=== PATIENT | male | born 1965 | race Caucasian/White ===

== ENCOUNTER 2022-11-16 07:00 | Outpatient (RCR) | payer BC, SELFPAY | END 2022-11-16 11:42 | disposition home or self-care (01) | LOC: ANHHIPT 07:00 | PROVIDERS: PCP Family Medicine; Visit Provider Family Medicine | DX: M25.551 Pain in right hip (principal); M25.552 Pain in left hip | CPT/HCPCS: 99199 ==

== ENCOUNTER 2023-02-26 13:15 | Outpatient (RCR) | payer BC, SELFPAY ==
--- NOTE | 2023-02-23 10:59 | PTOPEVAL1 ---
Assessment and note entered by Gisselle May, PT Evaluation Information Assessment Status Evaluation Diagnosis pain in right hip, pain in left hip Onset 10/2022 Subjective Information Pain sitting up, pain laying in bed Reported Pain Level Pain Score 0: Self Report Assessment PT Clinical Summary Pt presents w/ c/o bilateral hip pain especially with laying down at night and with getting up from prolonged sitting. Demo's overdeveloped gluteus minimus bilat, decreased strength and atrophy gluteus medius bilat, mildly decreased flexibility and ROM bilat hips, (+) tone multiple lumbar and gluteal muscles bilat. Pt will benefit from physical therapy to educate on improved functional mobility, strengthening, flexibility, and improve pain to return to prior level of function without pain. Plan of Care Interventions Electrical Stimulation,Hot Pack/Cold Pack,Manual Therapy,Neuro Re-education,Therapeutic Activities, Therapeutic Exercise,Self-Care/Home Management, Ultrasound PT Services Indicated Yes Treatment Frequency and 2x weekly x 4 weeks Duration These treatments will address the objective and functional deficits as defined above. The patient will be advanced safely and appropriately in order for the patient to progress towards his/her prior level of function. Additional exercises will be introduced and as well as a comprehensive home exercise program upon discharge, if needed, ?to ensure carryover of functional gains achieved in the clinic. This treatment plan has been reviewed and agreement upon by the patient.
--- NOTE | 2023-02-23 10:59 | OPREHPOC ---
Outpatient Therapy Plan of Care This is a Multidisciplinary Plan of Care that may contain components documented by all disciplines (PT, OT, and ST.) PT Goal 1 Goal Pt will be independent in HEP Target Visit 8 PT Goal 2 Goal Pt will verbalize understanding of diagnosis and prognosis Target Visit 8 PT Problem 2 PT Problem #2 Pain PT Goal 1 Goal Pt will report greatest pain level at 3/10 or less Target Visit 6 PT Goal 2 Goal Pt will report resolution of pain Target Visit 8 PT Problem 3 PT Problem #3 Impaired Strength PT Goal 1 Goal Pt will demo strength of 4+/5 in tesetd muscle groups Target Visit 8 PT Problem 4 PT Problem #4 Impaired Functional ADLs PT Goal 1 Goal Pt will report consistent use of functional modifications to improve pain Target Visit 8
--- NOTE | 2023-04-02 10:54 | PCPTNOTE ---
Admitting Provider: Attending Provider: KAT Mcgee Patient:Papito Cooley Date of :1965 Patient has not returned for any further treatments since 02/26/2023 due to insurance restrictions, therefore he will be discharged at this time. Patient?s initial visit was on 02/23/2023 10:15 and (he/she) had a total of 2 visits. The goals have been not been met, however pt was provided a detailed home exercise program to attempt independently. Thank you for referring this patient to [facility].
== END 2023-05-11 11:47 | disposition home or self-care (01) ==
LOC: ANHPT 13:15
PROVIDERS: PCP Family Medicine; Visit Provider Nurse Practitioner Family
DX: M25.551 Pain in right hip (principal); M25.552 Pain in left hip
CPT/HCPCS: 97110; 97140; 97161

== ENCOUNTER 2023-12-31 01:17 | Day surgery (SDC) | payer BC, SELFPAY ==
[2023-12-16 13:48] VITALS: BMI 28.8
[2023-12-31 06:22] VITALS: BP 140/104; PULSE 80; RESP 16; TEMP 36.2; O2SAT 99
[2023-12-31] MEDS: LACTATED RINGERS 1,000 ML 150 ML IV CONT (06:32)
--- NOTE | 2023-12-31 07:20 | PM.HPGS ---
History of Present Illness History of Present Illness Consent: Risks, benefits, and alternatives have been discussed and questions answered. Patient agrees to proceed with procedure. Chief complaint: History colon polyps Narrative: Papito Cooley is a 58 year old male with colon polyp 5 years ago Review of Systems Review of Systems: All systems reviewed & are unremarkable except as noted in HPI and below PMFSH Past Medical History Medical History (Updated 12/31/23 @ 07:21 by Enoch Bhat MD) Colon polyp Hip pain, bilateral Hyperlipidemia Hypertension Family History Family History ) Father Heart disease Sibling Heart disease Mother No problems noted. 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 Gender identity (if verbalized by the patient): Male Sexual Orientation (if Verbalized by the Patient): Straight or Heterosexual Meds Home Medications and Allergies Home Medications Medication Instructions Recorded Confirmed Type syringe with needle, safety 3 mL #12 ea 05/19/23 12/31/23 Rx 22 gauge x 1 testosterone cypionate 100 mg/mL 100 mg IM WEEKLY #10 mL 10/15/23 12/31/23 Rx intramuscular oil atenolol 50 mg tablet 50 mg PO DAILY #90 tabs 11/08/23 12/31/23 Rx losartan 100 mg tablet 100 mg PO DAILY #90 tabs 11/08/23 12/31/23 Rx rosuvastatin 5 mg tablet (Crestor) 5 mg PO DAILY #90 tabs 11/08/23 12/31/23 Rx Allergies Allergy/AdvReac Type Severity Reaction Status Date / Time Penicillins Allergy Intermediate Unknown Verified 12/31/23 06:19 Vital Signs Vital Signs - 24 hr 12/31/23 06:22 Temperature 97.1 F L Pulse Rate 80 Respiratory Rate 16 Blood Pressure 140/104 H Pulse Oximetry 99 Oxygen Delivery Room Air Exam Const: General: comfortable and no acute distress HENMT: Face/Nose/Sinus: Normal nares present Eyes: General: appearance normal, both eyes and all related structures Neck: Neck: no JVD Resp: Auscultation: clear to auscultation bilaterally Cardio: Rate: regular rate Rhythm: regular rhythm GI: Inspection: non-distended GI Palp: Yes Soft to palpation Skin: General skin exam: normal color Neuro: General: gait normal Speech: normal speech Extrem: General: normal to inspection Psych: Mental Status: mental status grossly normal Assessment and Plan Assessment and plan (1) Colon polyp: Code(s): K63.5 - Polyp of colon Status: Acute Assessment and Plan: colonoscopy
--- NOTE | 2023-12-31 07:22 | WPDANESEPPF ---
Anes - Initial Pre Proc Eval Procedure: Operation Date: 12/31/23 07:30 Proposed Procedures p Colonoscopy - Enoch Bhat MD Date/Time: 12/31/23 07:22 Surgeon: Enoch Bhat MD Pre Op Diagnosis: History colon polyps Patient Data Age: 58 Gender: M Height: 1.78 m Weight: 88.6 kg Last Vital Signs Temp 97.1 F L 12/31/23 06:22 Pulse 80 12/31/23 06:22 Resp 16 12/31/23 06:22 BP 140/104 H 12/31/23 06:22 Pulse Ox 99 12/31/23 06:22 O2 Del Method Room Air 12/31/23 06:22 Allergies Allergy/AdvReac Type Severity Reaction Status Date / Time Penicillins Allergy Intermediate Unknown Verified 12/31/23 06:19 Home Medications Medication Instructions Recorded Confirmed Type syringe with needle, safety 3 mL #12 ea 05/19/23 12/31/23 Rx 22 gauge x 1 testosterone cypionate 100 mg/mL 100 mg IM WEEKLY #10 mL 10/15/23 12/31/23 Rx intramuscular oil atenolol 50 mg tablet 50 mg PO DAILY #90 tabs 11/08/23 12/31/23 Rx losartan 100 mg tablet 100 mg PO DAILY #90 tabs 11/08/23 12/31/23 Rx rosuvastatin 5 mg tablet (Crestor) 5 mg PO DAILY #90 tabs 11/08/23 12/31/23 Rx Patient hx anesthesia problems: none Family hx anesthesia problems: none Results Review: All pre-operative results and documents have been reviewed as part of the pre-operative evaluation. [facility] Past Medical History Medical History (Updated 12/31/23 @ 07:21 by Enoch Bhat MD) Colon polyp Hip pain, bilateral Hyperlipidemia Hypertension Family History Family History ) Father Heart disease Sibling Heart disease Mother No problems noted. Social History Social History ) Smoking status: Never smoker Smokeless tobacco user: chewing tobacco Alcohol intake: current Alcohol use details: Socially Substance use: never Substance use type: does not use Living arrangements: other Additional living arrangements comments: with sp Occupation/Education: occupation Additional occupation/education comments: Library Aide Gender identity (if verbalized by the patient): Male Sexual Orientation (if Verbalized by the Patient): Straight or Heterosexual Anes - Eval Final PreProcedure Day of Procedure 12/31/23 07:22 Patient weight: normal Heart: regular rate and rhythm Lungs: clear to auscultation Airway: Mallampati scale class II Neurological: alert and oriented Last oral intake: >/= 8 hours ASA classification: II Emergent: no Anesthetic plan: proceed Anesthesia type and monitoring: general GIVS and standard monitoring Results Review: All pre-operative results and documents have been reviewed as part of the pre-operative evaluation. Informed Consent: The patient's anesthetic plan and its attendant risks and benefits were discussed with the patient/family/POA. Questions were solicited and answers provided to the satisfaction of the patient/family/POA.
[2023-12-31 07:40] VITALS: BP 100/66; PULSE 77; RESP 15; O2SAT 94
[2023-12-31 07:50] VITALS: BP 94/64; PULSE 77; RESP 17; O2SAT 94
[2023-12-31 08:00] VITALS: BP 105/57; PULSE 68; RESP 14; O2SAT 98
== END 2023-12-31 08:10 | disposition home or self-care (01) ==
PROVIDERS: PCP Family Medicine; Visit Provider Internal Medicine Gastroenterology
PROC: 0DJD8ZZ Inspection of Lower Intestinal Tract, Via Natural or Artificial Opening Endoscopic (ICD-10-PCS; CPT 45378; principal; 2023-12-31 07:30)
DX: Z12.11 Encounter for screening for malignant neoplasm of colon (principal); K57.30 Diverticulosis of large intestine without perforation or abscess without bleeding; K64.8 Other hemorrhoids; Z86.010 Personal history of colon polyps; I10 Essential (primary) hypertension; E78.5 Hyperlipidemia, unspecified; F17.220 Nicotine dependence, chewing tobacco, uncomplicated
CPT/HCPCS: 45378; J2001; J2704; J7120

== ENCOUNTER 2024-11-13 09:43 | Outpatient (CLI) | payer OTHER, SELFPAY ==
--- NOTE | ~2024-11-13 | US_ITS ---
EXAM: Focused ultrasound examination of the soft tissues of the left groin HISTORY: R10.32 - Left lower quadrant pain TECHNIQUE: Sonographic evaluation of the soft tissues of the left groin were performed assessing hooks scale appearance and color Doppler flow. COMPARISON: Reference is made to a CT examination of the abdomen and pelvis dated 07/11/2019. FINDINGS: Within the area of clinical concern within the left groin there is a 5.5 mm fascial defect which enla rges with Valsalva, for which a left inguinal hernia is suspected. Of note, this was not present on the CT examination dated 07/11/2019. Sonographic evaluation of the remainder of the soft tissues of the left groin demonstrate benign fibr ofatty and fibromuscular elements without a cystic or solid lesion of concern. IMPRESSION: Left inguinal hernia is suspected within the area of clinical concern. Reviewed, dictated and finalized at location A.
== END 2024-11-13 09:44 | disposition home or self-care (01) ==
LOC: MICIMG 09:44
PROVIDERS: PCP Nurse Practitioner Family; Visit Provider Nurse Practitioner Family
DX: K40.90 Unilateral inguinal hernia, without obstruction or gangrene, not specified as recurrent (principal)
CPT/HCPCS: 76882

== ENCOUNTER 2025-02-15 09:14 | Outpatient (CLI) | payer OTHER, SELFPAY ==
--- OUTSIDE RECORDS SUMMARY | 2025-02-15 09:23 | XMS_ITS | Referral Summary ---
Author Organization [facility] Address [address] [place] [address] Care Team Providers Care Remote Encoding Center Manager Name Role Phone Fernando Mijares MD Primary Care Provider [phone] Allergies Active Allergy Reactions Criticality Noted Date Comments Penicillins Vomiting Low 08/27/2020 Medications losartan (COZAAR) 100 mg tablet Take 1 tablet (100 mg total) by mouth daily 1 Active atenoloL (TENORMIN) 50 mg tablet Take 1 tablet (50 mg total) by mouth daily 1 Active rosuvastatin (CRESTOR) 5 mg tablet Take 1 tablet (5 mg total) by mouth nightly at bedtime. 1 Active testosterone cypionate (DEPO-TESTOTERO NE) 200 mg/mL injection INJECT 1 ML IN THE MUSCLE EVERY 3 WEEKS 1 Active predniSONE (DELTASONE) 10 mg tabletIndicatio ns:Anti-inflamm atory 2 tablets twice daily for 5 days then 1 tablet twice daily for 3 days then 1 tablet daily for 3 days. 29 tablet 3 Active triamcinolone (NASACORT) 55 mcg nasal inhaler Administer 2 sprays into each nostril daily 16.9 mL 3 3 Active Active Problems Problem Noted Date Diagnosed Date Sensorineural hearing loss ( SNHL) of right ear with unrestricted hearing of left ear 07/13/2023 Tinnitus of both ears 08/27/2020 Dysfunction of right eustachian tube 08/27/2020 Social History Tobacco Use Types Packs/Day Years Used Date Smoking Tobacco: Never Smokeless Tobacco: Never Alcohol Use Standard Drinks/Week Comments Yes 0 (1 standard drink = 0.6 oz pur e alcohol) Personal Safety Answer Date Recorded Getting School Help Needed Not on file 07/11 Sex and Gender Information Value Date Recorded Sex Assigned at Not on file Legal Sex Male 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 Gender Identity Not on file Sexual Orientation Not on file Last Filed Vital Signs Vital Sign Reading Time Taken Comments Blood Pressure - - Pulse - - Temperature 36.6 C (97.9 F) 07/13/2023 12:41 PM COMMUNITY EDUCATION SPECIALIST Respiratory Rate - - Oxygen Saturation - - Inhaled Oxygen Concentration - - Weight 90.7 kg (200 lb) 07/13/2023 12:41 PM COMMUNITY EDUCATION SPECIALIST Height 177.8 cm (5' 10) 07/13/2023 12:41 PM COMMUNITY EDUCATION SPECIALIST Body Mass Index 28.7 07/13/2023 12:41 PM COMMUNITY EDUCATION SPECIALIST Plan of Treatment Not on file Insurance [employer] CHOICE Care Teams Remote Encoding Center Manager Relationship Specialty Start Date End Date Fernando Mijares MD [address] [place] [id number] PCP - General Family Medicine 07/05/23
--- OUTSIDE RECORDS SUMMARY | 2025-02-15 09:23 | XMS_ITS | Clinical Summary ---
Author Organization [facility] Address [facility] [place] [address] Care Team Providers Care Smoking Tobacco Cutter Operator Name Role Phone Ankur Lee MD Primary Care Provider [phone] Allergies Active Allergy Reactions Criticality Noted Date Comments Penicillins Rash Low 02/02/2020 Social History Tobacco Use Types Packs/Day Years Used Date Smoking Tobacco: Never Smokeless Tobacco: Former Alcohol Use Standard Drinks/Week Comments Yes 0 (1 standard drink = 0.6 oz pur e alcohol) socially Sex and Gender Information Value Date Recorded Sex Assigned at Not on file Legal Sex Male 7:20 PM CDT Gender Identity Not on file Sexual Orientation Not on file Last Filed Vital Signs Vital Sign Reading Time Taken Comments Blood Pressure 173/99 02/02/2020 10:17 AM CDT Pulse 70 02/02/2020 10:17 AM CDT Temperature 36.7 C (98 F) 02/02/2020 10:17 AM CDT Respiratory Rate 18 02/02/2020 10:17 AM CDT Oxygen Saturation 98% 02/02/2020 10:17 AM CDT Inhaled Oxygen Concentration - - Weight 90.7 kg (200 lb) 02/02/2020 10:17 AM CDT Height 177.8 cm (5' 10) 02/02/2020 10:17 AM CDT Body Mass Index 28.7 02/02/2020 10:17 AM CDT Plan of Treatment Health Maintenance Due Date Last Done Comments Colorectal Cancer Screening Colonoscopy (10 Years) 1965 Annual Physical 10/22/1967 Hepatitis C 1982 DTaP, Tdap and Td Vaccines ( 1 - Tdap) 10/22/1983 Pneumococcal Vaccine: 50+ Ye ars (1 of 1 - PCV) 2014 Zoster Vaccines (1 of 2) 2014 COVID-19 Vaccine (2023-2 5 season) 2024 RSV Immunization or 60+ Years (1 - 1-dose 75+ series) 10/22/2039 Meningococcal B Vaccine Aged Out No l onger eligible based on patient's age to complete this topic Meningococcal Vaccine Aged Out No veronique tiffani eligible based on patient's age to complete this topic RSV Immunizations Under 20 Months Aged Out No longer eligible based on patient's age to complete this topic Insurance [facility] Care Teams Smoking Tobacco Cutter Operator Relationship Specialty Start Date End Date Ankur Lee MD [address] [place] [id number] PCP - General INTERNAL MEDICINE 02/02/20
--- OUTSIDE RECORDS SUMMARY | 2025-02-15 09:23 | XMS_ITS | Clinical Summary ---
Author Organization [facility] [address] Address [address] [place] [address] Care Team Providers Care Dowel Maker Name Role Phone Fernando Mijares MD Primary Care Provider [phone] Allergies Active Allergy Reactions Criticality Noted Date [...] 08/27/2020 Dysfunction of right eustachian tube 08/27/2020 Medical History Medical History Date Comments Hypertension Tinnitus Ear problems Family History Medical History Relation Name Comments Heart disease Other Relation Name Status Comments Other Social History Tobacco Use Types Packs/Day Years Used Date Smoking Tobacco: Never Smokeless Tobacco: Never Alcohol Use Standard Drinks/Week Comments Yes 0 (1 standard drink = 0.6 oz pur e alcohol) Personal Safety Answer Date Recorded Getting School Help Needed Not on file 07/11 Sex and Gender Information Value Date Recorded Sex Assigned at Not on file Legal Sex 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 Gender Identity Not on file Sexual Orientation Not on file Obstetrics History Last Filed Vital Signs Vital Sign Reading Time Taken Comments Blood Pressure - - Pulse - - Temperature 36.6 C (97.9 F) 07/13/2023 12:41 PM SOCIAL STUDIES TEACHER Respiratory Rate - - Oxygen Saturation - - Inhaled Oxygen Concentration - - Weight 90.7 kg (200 lb) 07/13/2023 12:41 PM SOCIAL STUDIES TEACHER Height 177.8 cm (5' 10) 07/13/2023 12:41 PM SOCIAL STUDIES TEACHER Body Mass Index 28.7 07/13/2023 12:41 PM SOCIAL STUDIES TEACHER Plan of Treatment Health Maintenance Due Date Last Done Comments Colon Cancer Screening-Colonoscopy 1965 Depression Screening 1965 Hepatitis C Screening 1965 Prostate Cancer Screening-PSA 1965 DTaP/Tdap/Td Vaccine (1 - Tdap) 10/22/1975 Hepatitis B Screening 1982 Regular Well Visit/Exam 18-64 1982 Zoster Vaccine (1 of 2) 2014 Covid-19 Vaccine ( season) 2024 06/08/2022, 07/24/2021, 11/14/2020, Additional history exists Influenza Vaccine (Season Ended) 2025 Pneumococcal vaccine <65 Aged Out No longer eligible based on patient's age to complete this topic Insurance [facility] [employer] CHOICE [id number] [id number] Care Teams Dowel Maker Relationship Specialty Start Date End Date Fernando Mijares MD [address] [place] [id number] PCP - General Family Medicine 07/05/23
--- NOTE | 2025-02-15 09:30 | ECG_ITS ---
Test Date: 2025-02-15 09:46:14 Measurements Intervals [place] Rate: 68 P: 52 IL: 150 QRS: -1 QRSD: 100 T: 50 QT: 390 QTc: 416 Interpretive Statements SINUS RHYTHM POSSIBLE ANTERIOR MYOCARDIAL INFARCTION [30 ms Q WAVE IN V3/V4, OR R < 0.2 mV IN V4], OF INDETERMINATE AGE No previous ECG available for comparison Electronically Signed On 02-16-2025 15:46:10 CDT by Devon Roper M.D.
[2025-02-15 09:58] LABS: Hematocrit 47.4 % (42.0-52.0); Hemoglobin 16.4 g/dL (14.0-18.0); Immature Granulocyte Percent A 0.4 % (0-0.5); Lymphocytes Absolute Auto 2.58 K/mm3 (0.9-3.2); Mean Corpuscular HGB Conc 34.6 g/dl (32-36); Mean Corpuscular Hemoglobin 31.4 pg (26-34); Mean Corpuscular Volume 90.6 fl (80-100); Nucleated Red Blood Cells Absolute Auto 0.000 K/mm3 (0.0-0.012); Nucleated Red Blood Cells Perc 0.0 % (0.0-0.2); Platelet Count Result 191 k/mm3 (150-375); Red Blood Count 5.23 M/mm3 (4.6-6.20); White Blood Count 9.1 K/mm3 (4.5-10.0)
== END 2025-02-15 09:15 | disposition home or self-care (01) ==
LOC: ANHSURGERY 09:18
PROVIDERS: PCP Nurse Practitioner Family; Visit Provider Surgery
DX: Z01.818 Encounter for other preprocedural examination (principal); K40.20 Bilateral inguinal hernia, without obstruction or gangrene, not specified as recurrent; I10 Essential (primary) hypertension; E78.5 Hyperlipidemia, unspecified
CPT/HCPCS: 36415; 85025; 86850; 86900; 86901; 93005

== ENCOUNTER 2025-02-21 00:27 | Day surgery (SDC) | payer OTHER, SELFPAY ==
[2025-02-14 08:08] VITALS: BMI 26.5
--- NOTE | 2025-02-14 08:14 | PC.NURSE ---
Report to the Outpatient Waiting Room, entrance under the green pavilion located off [facility], at time _0600_ on date _[id number]_. Planned Procedure Time: _0730_.? Time changes happen often and if your time is changed the preop area will call you the afternoon before. - You and your visitor will be asked to self-screen and do not enter if you have any COVID symptoms. Please call surgeon if you need to reschedule. - A mask is optional within the hospital at this time. Patients may have clear liquids (water, carbonated beverages, clear teas, apple juice) until 3 hours prior to surgery with a maximum of 20 ounces. - No food from midnight until time of surgery and no smoking, or chewing tobacco (or any form of nicotine). No chewing gum, candy or mints. Take only the following medications with a SIP of water on the morning of surgery: ___Atenolol DO NOT STOP ANY OF YOUR OTHER PRESCRIPTION MEDICATIONS PRIOR TO SURGERY EXCEPT THE FOLLOWING Hold all vitamins and supplements for 3 days per anesthesiologist. Medications to discontinue per physician Date to take last dose Please no make-up, nail bangladeshi, hairspray, perfume, deodorant, or body powder the day of surgery.? No jewelry (including any body piercings) or valuables the day of surgery, leave them at home.? Please take a shower or bath the night before, or the morning of, surgery with an antibacterial soap.? Wear comfortable, loose fitting clothing. - Jewelry must be removed prior to entering the operating room.? Rings and piercings that are not removed may be cut off. - The hospital will not accept responsibility for valuables.? - Please leave all valuables, including medications, at home the day of surgery. If you are going home after surgery, a licensed substitute bus driver must drive you home.? - NO public transportation without another adult if you receive anesthesia. - We recommend that an adult stay with you for 24 hours following discharge. - We also recommend that you do not drive, make important decision, drink alcoholic beverages, or take any drugs that were not prescribed by your health care provider for at least 24 hours after your discharge time. Follow any additional instructions given to you from your surgeon. Telephone instructions given to __Dan___and asked if any additional questions and then verbalized understanding. Patient advised to call surgeon office or pre surgery nurse liaison [phone] if any additional questions.
--- NOTE | 2025-02-20 07:55 | P.SS_ITS ---
Same Day Admit/Disch: HPI History of Present Illness Chief complaint: Bilateral Inguinal Hernias Narrative: Papito Cooley is a 59 year old male who noticed some discomfort and a bulge in the left groin towards the end of September of this year. He had an ultrasound of the left groin which suggested he had a hernia there as well. I saw him in the office in November. He had bilateral inguinal hernias. He is taken to surgery now for robotic laparoscopic repair bilateral inguinal hernias. [facility] Past Medical History Medical History (Updated 02/21/25 @ 09:48 by Reji Quijano MD) Colon polyp Hip pain, bilateral Hyperlipidemia Hypertension Family History Family History Father Heart disease Sibling Heart disease Mother No problems noted. Social History Social History (Updated 02/21/25 @ 07:03 by Bishnu Cooper MD) Social History: 11/05/24 very confident with medical forms. Smoking status: Never smoker Alcohol intake: current Alcohol use details: Socially Substance use: never Substance use type: does not use Do You Feel Safe in your Home?: Yes Lack of Transportation: No Lack of Food: Never True Current Housing: I Have Housing Concerned About Future Housing: No Difficulty Paying Gas/Electric Bills: No Difficulty Paying for Meds: No Currently Unemployed: No Education: Master's Degree or Higher Difficulty w/ Childcare or Family Care: No Living arrangements: with family Additional living arrangements comments: with sp Occupation/Education: occupation Additional occupation/education comments: [employer] Gender identity (if verbalized by the patient): Male Sexual Orientation (if Verbalized by the Patient): Straight or Heterosexual Spiritual care concerns: No Agree to blood products: Yes Same Day Admit/Disch: Med Pre-admit Medications Home Medications ?Medication ?Instructions ?Recorded ?Confirmed ?Type syringe with needle, safety 3 mL #12 ea 05/19/23 02/14/25 Rx 22 gauge x 1 testosterone cypionate 100 mg/mL 100 mg IM .EVERY OTHER WEEK #10 mL 06/30/24 Rx intramuscular oil atenolol 50 mg tablet 50 mg PO DAILY #90 tabs 11/20/24 02/21/25 Rx losartan 100 mg tablet 100 mg PO DAILY #90 tabs 11/20/24 02/14/25 Rx rosuvastatin 5 mg tablet (Crestor) 5 mg PO DAILY #90 tabs 11/20/24 02/14/25 Rx ketorolac 10 mg tablet 10 mg PO Q6H 4 days #16 tabs 02/21/25 Rx oxycodone-acetaminophen 5 mg-325 0.5 - 1 tablet PO Q4H PRN pain #15 02/21/25 Rx mg tablet (Percocet) tabs Review of Systems Review of Systems All systems reviewed & are unremarkable except as noted in HPI and below (HPI) Exam Const: General: comfortable, no acute distress, alert and awake HENMT: Head: normocephalic and atraumatic Mouth: Yes Normal oral and palatal mucosa present Eyes: Conjunctivae: conjunctivae normal Pupils: Equal, round and reactive pupils present EOM: EOMs intact bilaterally Neck: Neck: normal visual inspection, no lymphadenopathy and nontender Resp: Effort & Inspection: normal respiratory effort Auscultation: clear to auscultation bilaterally Cardio: Rate: regular rate Rhythm: regular rhythm Heart sounds: no gallops, no murmurs and no rubs GI: Inspection: non-distended GI Palp: Yes Soft to palpation, No Tenderness to palpation present (GI), No Hepatomegaly present and No Splenomegaly present : Male General Exam: Yes normal external exam and Yes hernia (Bilateral inguinal bulging with cough) Penis: Yes normal penis Scrotum: scrotum normal Testes: Testes normal Skin: Lesions: no lesions Rashes: no rashes Neuro: General: no focal motor deficits and CN's II-XI intact bilaterally Cranial nerves: Yes Equal, round and reactive pupils present, Yes Bilaterally intact EOM present, Yes facial symmetry and Yes Midline tongue present Speech: normal speech Motor exam (neuro): 5/5 motor strength present throughout and Motor abnormalities not present Extrem: General: no clubbing, cyanosis or edema and edema Psych: Affect: normal affect Thought process: Normal thought process present Insight: Good insight present (Psych) DS: Summary Time Spent with Patient Time attestation: Total time spent providing and/or coordinating discharge services: DS: Admitting Diagnosis Discharge Date 02/21/2025 Admitting Diagnosis * Bilateral, reducible, inguinal hernias. Left is more symptomatic. Plan is to proceed with robotic laparoscopic repair of both hernias with mesh. I have described the procedure, the risks and benefits, and the usual recovery to the patient. The use of mesh has been discussed with the patient. All questions were answered. He understands and agrees to go ahead. * Essential hypertension DS: Discharge Diagnosis Discharge Diagnosis (1) Bilateral inguinal hernia: Qualifiers: Obstruction and gangrene presence: without obstruction or gangrene Recurrence: non-recurrent Qualified Code(s): K40.20 - Bilateral inguinal hernia, without obstruction or gangrene, not specified as recurrent Code(s): K40.20 - Bilateral inguinal hernia, without obstruction or gangrene, not specified as recurrent Status: Chronic Assessment and Plan: Robotic laparoscopic repair with mesh performed by Dr. Quijano on 02/21/2025 Discharge Plan Discharge Patient Disposition: Home Discharge Instructions: 1. May shower the day after surgery over incisions. 2. Call office for: -Wound increasingly painful or bleeding -Vomiting -Fever of greater than 101 degrees 3. Wear scrotal support at all times except when sleeping or showering for 1 wee k 4. If no bowel movement for three days, take 1 oz. (30 ml) Milk of Magnesia, if no results, take Fleets enema. 5. No heavy lifting > 15-20 pounds for 2 weeks. 6. No driving for 3 days or while taking narcotic pain medications. 7. Up walking 10-30 minutes three times per day. 8. Resume previous home medications. 9. Follow-up 10-14 days in office for wound check or as previously scheduled. 10. Oral pain medications prescription to be sent home with patient. 11. NUTRITION: Start out by drinking fluids and increase your diet as tolerated. If you experience nausea, try dry toast, crackers, and 7-UP. If nausea or vomiting persists, contact your surgeon?s office. Patient Language: Danish Stand Alone Forms: General Discharge Instructions Follow-up/Referrals: Reji Quijano MD [Physician] - 3 Weeks Discharge Medications: New ketorolac 10 mg tablet 10 mg PO Q6H 4 Days Qty: 16 0RF oxycodone-acetaminophen [Percocet] 5-325 mg tablet 0.5 - 1 tablet PO Q4H PRN (Reason: pain) Qty: 15 0RF Continued (DME) syringe with needle, safety 3 mL 22 gauge x 1 syringe See Rx Instructions .Route Qty: 12 1RF Rx Instructions: Use one syringe with Testosterone Injections testosterone cypionate 100 mg/mL oil 100 mg IM .EVERY OTHER WEEK Qty: 10 2RF rosuvastatin [Crestor] 5 mg tablet 5 mg PO DAILY Qty: 90 1RF atenolol 50 mg tablet 50 mg PO DAILY Qty: 90 1RF losartan 100 mg tablet 100 mg PO DAILY Qty: 90 1RF
[2025-02-21] VITALS (13 sets, daily range): BP systolic 101–141; BP diastolic 62–91; PULSE 59–76; RESP 12–18; TEMP 36.2–36.6; O2SAT 97–100; BMI 26.4
--- OUTSIDE RECORDS SUMMARY | 2025-02-21 00:30 | XMS_ITS | Referral Summary ---
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 Gender Identity Not on file Sexual Orientation Not on file Last Filed Vital Signs Vital Sign Reading Time Taken Comments Blood Pressure - - Pulse - - Temperature 36.6 C (97.9 F) 07/13/2023 12:41 PM EPIC PROFESSIONAL Respiratory Rate - - Oxygen Saturation - - Inhaled Oxygen Concentration - - Weight 90.7 kg (200 lb) 07/13/2023 12:41 PM EPIC PROFESSIONAL Height 177.8 cm (5' 10) 07/13/2023 12:41 PM EPIC PROFESSIONAL Body Mass Index 28.7 07/13/2023 12:41 PM EPIC PROFESSIONAL Plan of Treatment Not on file Insurance [employer] CHOICE Care Teams Household Personal Assistant Relationship Specialty Start Date End Date Fernando Mijares MD [address] [place] [id number] PCP - General Family Medicine 07/05/23
--- OUTSIDE RECORDS SUMMARY | 2025-02-21 00:30 | XMS_ITS | Clinical Summary ---
Author Organization [facility] Address [facility]ly [facility] [place] [address] Care Team Providers Care State Patrol Officer Name Role Phone Ankur Lee MD Primary Care Provider [phone] Allergies Active Allergy Reactions Criticality Noted Date [...] patient's age to complete this topic Insurance [facility] Care Teams State Patrol Officer Relationship Specialty Start Date End Date Ankur Lee MD [address] [place] [id number] PCP - General INTERNAL MEDICINE 02/02/20
--- OUTSIDE RECORDS SUMMARY | 2025-02-21 00:30 | XMS_ITS | Clinical Summary ---
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 Gender Identity Not on file Sexual Orientation Not on file Obstetrics History Last Filed Vital Signs Vital Sign Reading Time Taken Comments Blood Pressure - - Pulse - - Temperature 36.6 C (97.9 F) 07/13/2023 12:41 PM EMPLOYEE HEALTH NURSE Respiratory Rate - - Oxygen Saturation - - Inhaled Oxygen Concentration - - Weight 90.7 kg (200 lb) 07/13/2023 12:41 PM EMPLOYEE HEALTH NURSE Height 177.8 cm (5' 10) 07/13/2023 12:41 PM EMPLOYEE HEALTH NURSE Body Mass Index 28.7 07/13/2023 12:41 PM EMPLOYEE HEALTH NURSE Plan of Treatment Health Maintenance Due Date Last Done Comments Colon Cancer Screening-Colonoscopy 1964 Depression Screening 1964 Hepatitis C Screening 1964 Prostate Cancer Screening-PSA 1964 DTaP/Tdap/Td Vaccine (1 - Tdap) 10/22/1975 Hepatitis B Screening 1982 Regular Well Visit/Exam 18-64 1982 Zoster Vaccine (1 of 2) 2014 Covid-19 Vaccine ( season) 2024 06/08/2022, 07/24/2021, 11/14/2020, Additional history exists Influenza Vaccine (#1) 2025 Pneumococcal vaccine <65 Aged Out No longer eligible based on patient's age to complete this topic Insurance [facility] [employer] [id number] [id number] Care Teams Delivery Crew Member Relationship Specialty Start Date End Date Fernando Mijares MD [address] [place] [id number] PCP - General Family Medicine 07/05/23
[2025-02-21] MEDS: ACETAMINOPHEN 500 MG TABLET 1000 MG PO (06:45)
[2025-02-21] MEDS: LACTATED RINGERS 1,000 ML 30 ML IV CONT ×2 (07:00→09:34)
[2025-02-21] MEDS: KETOROLAC 15 MG/ML VIAL (*BKC) IV PUSH (07:00)
--- NOTE | 2025-02-21 07:00 | P.PNAN_ITS ---
Anes - Initial Pre Proc Eval Procedure: Operation Date: 02/21/25 07:30 Proposed Procedures p Robotic Assisted Bilateral Inguinal Hernia Repair with Mesh - Reji Quijano MD Date/Time: 02/21/25 07:00 Surgeon: Reji Quijano MD Pre Op Diagnosis: Bilateral Inguinal Hernias Patient Data Age: 59 Gender: M Height: 1.78 m Weight: 84 kg Allergies Allergy/AdvReac Type Severity Reaction Status Date / Time Penicillins Allergy Intermediate Rash Verified 02/14/25 08:07 Home Medications ?Medication ?Instructions ?Recorded ?Confirmed ?Type syringe with needle, safety 3 mL #12 ea 05/19/23 02/14/25 Rx 22 gauge x 1 testosterone cypionate 100 mg/mL 100 mg IM .EVERY OTHER WEEK #10 mL 06/30/24 02/14/25 Rx intramuscular oil atenolol 50 mg tablet 50 mg PO DAILY #90 tabs 11/20/24 02/14/25 Rx losartan 100 mg tablet 100 mg PO DAILY #90 tabs 11/20/24 02/14/25 Rx rosuvastatin 5 mg tablet (Crestor) 5 mg PO DAILY #90 tabs 11/20/24 02/14/25 Rx Patient hx anesthesia problems: none Family hx anesthesia problems: none Results Review: All pre-operative results and documents have been reviewed as part of the pre- operative evaluation. [facility] Past Medical History Medical History (Updated 02/21/25 @ 07:03 by Bishnu Cooper MD) Colon polyp Hip pain, bilateral Hyperlipidemia Hypertension Family History Family History Father Heart disease Sibling Heart disease Mother No problems noted. Social History Social History (Updated 02/21/25 @ 07:03 by Bishnu Cooper MD) Social History: 11/05/24 very confident with medical forms. Smoking status: Never smoker Alcohol intake: current Alcohol use details: Socially Substance use: never Substance use type: does not use Do You Feel Safe in your Home?: Yes Lack of Transportation: No Lack of Food: Never True Current Housing: I Have Housing Concerned About Future Housing: No Difficulty Paying Gas/Electric Bills: No Difficulty Paying for Meds: No Currently Unemployed: No Education: Master's Degree or Higher Difficulty w/ Childcare or Family Care: No Living arrangements: with family Additional living arrangements comments: with sp Occupation/Education: occupation Additional occupation/education comments: [employer] Gender identity (if verbalized by the patient): Male Sexual Orientation (if Verbalized by the Patient): Straight or Heterosexual Spiritual care concerns: No Agree to blood products: Yes Anes - Eval Final PreProcedure Day of Procedure 02/21/25 07:00 Patient weight: overweight Heart: regular rate and rhythm Lungs: clear to auscultation Airway: Mallampati scale class II Neurological: alert and oriented Last oral intake: >/= 8 hours ASA classification: II Emergent: no Anesthetic plan: proceed Anesthesia type and monitoring: general ETT and standard monitoring Results Review: All pre-operative results and documents have been reviewed as part of the pre- operative evaluation. Informed Consent: The patient's anesthetic plan and its attendant risks and benefits were discussed with the patient/family/POA. Questions were solicited and answers provided to the satisfaction of the patient/family/POA.
--- NOTE | 2025-02-21 07:03 | WPDHPUPDATE1 ---
History and Physical Update Update Date/Time: 02/21/25 07:03 History and Physical has been reviewed, including an updated exam of the patient. There are NO changes in the patient's condition. Risks, benefits, and alternatives have been discussed and questions answered. Patient agrees to proceed with procedure.
[2025-02-21] MEDS: ceFAZolin 2 GM in SODIUM CHLORIDE 0.9% IV 50 ML 100 ML IVPB (07:26)
[2025-02-21] MEDS: BUPIVACAINE/EPINEPHRINE 0.5% 50 ML VIAL 30 ML INFILTRATE (07:52)
--- NOTE | 2025-02-21 09:37 | P.OP_ITS ---
Procedure Note - Detailed Date of Procedure 02/21/25 Pre-op Diagnosis Bilateral Inguinal Hernias Post-op Diagnosis Same Procedure Performed Robotic laparoscopic repair bilateral inguinal hernias with mesh Surgeon Reji Quijano MD Staking Technician Cody GARNER Anesthesia General and Local Indications Patient noticed a bulge and some pain in the left groin. When I saw in the office, he had a left inguinal hernia as well as an asymptomatic right inguinal hernia. He is taken to surgery now for robotic laparoscopic repair of bilateral inguinal hernias. Findings These were both indirect hernias. Description of Procedure The patient was taken to surgery and induced into general anesthesia. The abdomen is prepped and draped. Trocars were placed in the usual fashion starting with an applied Medical optical 5 mm port in the left subcostal position. We then change these out under direct visualization for 8 mm robotic ports. Patient was placed in Trendelenburg. Mesh and suture were placed in the abdominal cavity. The robot was brought into the field and the camera was docked and targeted. The instrument arms were then docked and positioned appropriately. The surgeon went to the robotic console. Starting on the left side, an anterior peritoneal flap was developed a broadly. This was dissected from anterior to posterior. Medially the dissection went down to Boaz's ligam ent Boaz ligament was exposed as was the pubis. Properitoneal fat was dissected off the anterior abdominal wall past the midline. Laterally we dissected well posterior for mesh placement. Cautery was used to slowly reduce the indirect hernia. This was largely lipomatous tissue. I carefully dissected and preserved the vas deferens and cord vessels. Once the hernia was entirely reduced, I peritonealized the spermatic cord. With this dissection completed, I turned my attention to the right inguinal area. Again anterior peritoneal flap was created. It was dissected from anterior to posterior in a broad fashion. Medially, we dissected down to Boaz's ligament and connected this space with that from the left side. Boaz's ligament and the pubis were exposed. I ensure there was plenty of space for the mesh placement medially. Laterally we dissected posteriorly. We then turned our attention to the herniated tissue. With gentle traction and division of the transversalis fascia, the hernia was slowly reduced. We dissected the spermatic cord structures away from the hernia sac. This side was largely lipomatous tissue as well. Continued dissection eventually reduce the hernia entirely. We peritonealized the spermatic cord structures on the right side as well. There was adequate posterior space for mesh placement. I then placed the right-sided mesh over the inguinal canal structures. The mesh used on both sides was large, 16 x 10 cm mid 3DMax mesh. Once the mesh on the right side was positioned appropriately, I used 3-0 Vicryl suture to secure it in position. Three sutures were placed, 1 in Boaz's ligament and to anteriorly on the medial and lateral side. I then turned my attention to the left side. In similar fashion the left-sided 3DMax mesh was placed in the appropriate position. It was also sutured in place with 3 different 3-0 Vicryl suture. I then used a 3 0 V lock suture and closed the peritoneal flap on the left side. Another 3-0 V lock suture was used to close the mesh on the right side. All residual needles and suture were then removed from the abdominal cavity. All looked good. The instruments were removed and the robot was undocked. CO2 was evacuated and the trocars were removed. Skin wounds were closed with subcuticular 4-0 Monocryl skin suture. The wounds were dressed with Exofin surgical adhesive. A scrotal support was placed. The patient was awakened and taken to recovery in good condition. Sponge and needle counts were correct x2. Implants Large, 16 x 10 cm, mid 3DMax mesh-1 piece for the left side, 1 piece for the right side Estimated Blood Loss -5 Drains No Packing No Pathology None sent Complications None Condition Stable Disposition PACU [facility] Billing Surgery - Charge Forward: Surgery Billing (Robotic laparoscopic repair bilateral inguinal hernias with mesh)
== END 2025-02-21 13:08 | disposition home or self-care (01) ==
PROVIDERS: PCP Nurse Practitioner Family; Visit Provider Surgery
PROC: 8E0Y4CZ Robotic Assisted Procedure of Lower Extremity, Percutaneous Endoscopic Approach (ICD-10-PCS; CPT 49650; principal; 2025-02-21 07:30)
DX: K40.20 Bilateral inguinal hernia, without obstruction or gangrene, not specified as recurrent (principal); G89.18 Other acute postprocedural pain; E78.5 Hyperlipidemia, unspecified; I10 Essential (primary) hypertension; Z79.891 Long term (current) use of opiate analgesic; Z86.0100 Personal history of colon polyps, unspecified; Z82.49 Family history of ischemic heart disease and other diseases of the circulatory system
CPT/HCPCS: 49650; S2900; J0690; A9270; C1781; J1885; J2003; J2250; J2405; J2704; J3010; J7030; J7120

== ENCOUNTER 2025-06-04 08:22 | Outpatient (CLI) | payer OTHER, SELFPAY ==
--- NOTE | ~2025-06-04 | CT_ITS ---
EXAMINATION: CT pelvis wo con DATE: 06/04/2025 08:40 INDICATION: Localized enlarged lymph nodes at the left groin TECHNIQUE: Computed tomography (CT) of the pelvis was performed without intravenous contrast. Automated exposure control and iterative reconstruction technique were employed.The dose-length product was 503.60 mGy-cm. COMPARISON: 07/11/2019 FINDINGS: Moderate scattered diverticulosis along the visualized colon without adjacent inflammatory stranding to suggest diverticulitis. No bowel obstruction. Normal appendix. 2.7 x 1.8 cm ovoid region of fat in the left lower quadrant with central vessel and thin peripheral soft tissue density rim without significant surrounding from trace stranding consistent with age indeterminate, more likely chronic epiploic appendicitis. Interval change of bilateral inguinal hernia mesh repairs with residual small amount of herniated fat within the right inguinal canal. Bladder is normal. Mild prostatomegaly measuring 4.5 x 3.6 cm. No free fluid in the visualized pelvis. No pathologically enlarged lower abdo adalberto, pelvic or inguinal lymphadenopathy. Lower lumbar spondylosis with severe disc height loss at L5-S1, moderate at L4-L5. IMPRESSION: 1. Postoperative changes of bilateral inguinal hernia mesh repairs. 2. Diverticulosis without evident diverticulitis. 3. Age-indeterminate epiploic appendicitis in the left lower quadrant. 4. Mild prostatomegaly. Reviewed, dictated and finalized at location A. P CRANE OPERATOR
== END 2025-06-04 08:23 | disposition home or self-care (01) ==
LOC: MICIMG 08:23
PROVIDERS: PCP Nurse Practitioner Family; Visit Provider Surgery
DX: K63.89 Other specified diseases of intestine (principal); K57.90 Diverticulosis of intestine, part unspecified, without perforation or abscess without bleeding; N40.0 Benign prostatic hyperplasia without lower urinary tract symptoms; Z98.890 Other specified postprocedural states; R59.0 Localized enlarged lymph nodes
CPT/HCPCS: 72192